=== PATIENT | male | born 1965 | race Caucasian/White ===

== ENCOUNTER 2024-03-10 06:48 | Emergency (ER) | payer OTHER, SELFPAY ==
[2024-03-10 06:52] VITALS: BP 130/101; PULSE 80; TEMP 36.6; O2SAT 96; BMI 27.4
[2024-03-10 06:57] VITALS: PULSE 75; PULSE 77
[2024-03-10 06:58] VITALS: BP 135/101
[2024-03-10 06:59] VITALS: BP 130/101
[2024-03-10 07:00] VITALS: BP 142/102; PULSE 79; O2SAT 96
--- NOTE | 2024-03-10 07:12 | ED.CHESTPAI1 ---
HPI - Chest Pain General Chief Complaint: Chest Pain Stated Complaint: CHEST PAIN Time Seen by Provider: 03/10/24 07:12 Source: patient Mode of arrival: walk-in History of Present Illness HPI narrative: This patient is here planing of palpitations. He actually has had very little chest pain. He describes it as just a light sensation. He is more concerned over the last several weeks has been having fluttering and palpitations. He has a history of high cholesterol but has been off and on statins because of the muscle aches and pains he experiences. Has never had a CT scan coronary scan or stress test. He has no previous cardiovascular disease. There is no family history of cardiac disease. His blood pressure has been trending upwards but he is not on any medications for it. He does use alcohol products occasionally. He has no shortness of breath. No history of syncopal episodes no history of cardiac murmur. No tobacco usage. No diabetes. Related Data Home Medications ?Medication ?Instructions ?Recorded ?Confirmed atorvastatin 20 mg tablet 20 mg PO DAILY 03/10/24 03/10/24 bupropion HCl 150 mg tablet,12 hr 150 mg PO DAILY 03/10/24 03/10/24 sustained-release Allergies Allergy/AdvReac Type Severity Reaction Status Date / Time cefaclor [From Ceclor] Allergy Unknown Verified 03/10/24 07:01 sulfamethoxazole Allergy Unknown Verified 03/10/24 07:01 [From Bactrim] trimethoprim [From Bactrim] Allergy Unknown Verified 03/10/24 07:01 Exam Narrative Exam Narrative: Very pleasant 59-year-old not anxious or apprehensive. Vital signs are noted with mild elevation of blood pressure. HEENT shows no evidence of pallor or scleral icterus or conjunctivitis. Upper airway is completely normal no respiratory distress. His lungs are completely clear no wheeze rales or rhonchi. Heart sounds normal with no S3-S4 clicks rubs gallops or murmurs. Extremities show no evidence of phlebitis edema or swelling. Neurological cognition and mentation are normal. Constitutional Vital Signs, click to edit/add: Last Vital Signs Temp 97.8 F 03/10/24 06:52 Pulse 80 03/10/24 06:52 Resp 18 03/10/24 06:52 BP 130/101 H 03/10/24 06:52 Pulse Ox 96 03/10/24 06:52 O2 Del Method Room Air 03/10/24 06:52 Course Vital Signs Vital signs: Vital Signs Temperature 97.8 F 03/10/24 06:52 Pulse Rate 80 03/10/24 06:52 Respiratory Rate 18 03/10/24 06:52 Blood Pressure 130/101 H 03/10/24 06:52 Pulse Oximetry 96 03/10/24 06:52 Oxygen Delivery Method Room Air 03/10/24 06:52 Temperature 97.8 F 03/10/24 06:52 Pulse Rate 80 03/10/24 06:52 Respiratory Rate 18 03/10/24 06:52 Blood Pressure 130/101 H 03/10/24 06:52 Pulse Oximetry 96 03/10/24 06:52 Oxygen Delivery Method Room Air 03/10/24 06:52 MDM - Chest Pain MDM Narrative Medical decision making narrative: This patient presents with symptoms consistent with an arrhythmia. His risk factors for cardiovascular disease include hypercholesterolemia. He has not had outpatient testing with stress test, echocardiogram or coronary CT scanning in the past. He has been off, and on statins for his cholesterol problem. His workup today is benign but I do want him to follow-up with his primary care doctor to consider evaluation of his arrhythmia. Discharge Plan Discharge Stand Alone Forms: Portal Instructions Chief Complaint: Chest Pain Clinical Impression: Heart palpitations Patient Disposition: Home, Self-Care Time of Disposition Decision: 08:07 Prescriptions / Home Meds: No Action atorvastatin 20 mg tablet 20 mg PO DAILY bupropion HCl 150 mg tablet sustained-release 12 hr 150 mg PO DAILY Print Language: Bangladeshi Additional Instructions: Follow-up with your primary care doctor. He may order further diagnostic testing Referrals: Physician,Non-Staff, MD [Primary Care Provider] - 1 week
--- NOTE | 2024-03-10 07:14 | ECG_ITS ---
[facility] Test Date: 2024-03-10 Pat Name: MIRELA EL Department: Room: - Gender: Male [employer] Machine Operator: : 1965 Requested By: Order Number: [id number] Reading MD: KATIE WILL Measurements Intervals [place] Rate: 75 P: 16 OK: 128 QRS: 52 QRSD: 94 T: 63 QT: 374 QTc: 403 Interpretive Statements 1100 Sinus rhythm 9110 normal ECG No previous ECG available for comparison Electronically Signed On 03-10-2024 23:07:34 EDT by KATIE WILL
--- NOTE | 2024-03-10 07:14 | XR_ITS ---
The [address] [address] Patient Name: MIRELA EL MRN: [id number] date: 1965 Sex: M Assigned Patient Location: ER Current Patient Location: ER Accession/Order Number: [id number] Exam Date: 03/10/2024 07:20 Report Date: 03/10/2024 07:49 At the request of: KAHLIL HATFIELD Procedure: XR chest 1V EXAMINATION: XR chest 1V HISTORY: Arrhythmia , chest pain COMPARISON: No relevant comparison available. FINDINGS: LUNGS: No infiltrate, pneumothorax, or pleural effusion. MEDIASTINUM: No abnormal widening. BOWEL GAS PATTERN: Non-obstructed. FREE AIR: None. CALCIFICATIONS: None significant. BONES: No fracture or visible bone lesion. OTHER: Negative. XR/XR chest 1V IMPRESSION: 1. No acute cardiopulmonary process or suspicious findings. Electronically authenticated by: BIBIANA DIGGS Date: 03/10/2024 07:49
[2024-03-10 07:20] LABS: Basophils Absolute Auto 0.1 10^3/uL (0.0-0.1); Basophils Percent Auto 1.6 % (0.2-2.0); Eosinophils Absolute Auto 0.4 10^3/uL (0.0-0.7); Eosinophils Percent Auto 5.5 % (0.9-7.0); Hematocrit 44.6 % (42.0-54.0); Hemoglobin 15.3 g/dL (14.0-18.0); Immature Granulocytes Abs Auto 0.03 10^3/uL (0.00-0.03); Immature Granulocytes Pct Auto 0.4 % (0.0-0.5); Lymphocytes Absolute Auto 1.8 10^3/uL (1.2-3.8); Mean Corpuscular HGB Conc 34.3 g/dL (29.9-35.2); Mean Corpuscular Hemoglobin 31.2 pg (25.9-34.0); Mean Corpuscular Volume 90.8 fL (80.0-94.0); Mean Platelet Volume 10.1 fL (9.5-13.5); Monocytes Absolute Auto 0.9 10^3/uL (0.3-0.8); Monocytes Percent Auto 12.4 % (1.7-12.0); Neutrophils Absolute Auto 4.3 10^3/uL (1.4-6.5); Neutrophils Percent Auto 57.1 % (43.0-75.0); Platelet Count 260 10^3/uL (150-450); Red Blood Count 4.91 10^6/uL (4.70-6.10); Red Cell Distribution Width 13.1 % (11.0-15.0); White Blood Count 7.6 10^3/uL (4.0-11.0)
[2024-03-10 07:27] LABS: D Dimer 0.45 mg/L FEU (<=0.59)
[2024-03-10 07:30] LABS: Alanine Aminotransferase 36 U/L (16-63); Albumin Level 3.6 g/dL (3.4-5.0); Alkaline Phosphatase 62 U/L (46-116); Anion Gap 12.7; Aspartate Amino Transferase 28 U/L (15-37); BUN Creatinine Ratio 10.3; Bilirubin Total 0.7 mg/dL (0.2-1.0); Carbon Dioxide 27.4 mmol/L (21.0-32.0); Chloride 105 mmol/L (98-107); Estimated GFR (African America >60 (>=60); Estimated GFR (Non-African Ame >60 (>=60); Globulin 3.6 g/dL; Glucose 120 mg/dL (74-106); Potassium 4.1 mmol/L (3.5-5.1); Sodium 141 mmol/L (136-145); Total Protein 7.2 g/dL (6.4-8.2)
[2024-03-10 07:33] LABS: C Reactive Protein <0.50 mg/dL (<=0.50); Troponin I High Sensitivity 4.3 pg/mL (4.0-76.1)
== END 2024-03-10 08:19 | disposition home or self-care (01) ==
PROVIDERS: Emergency Provider Emergency Medicine Emergency Medical Services
DX: R00.2 Palpitations (principal); E78.00 Pure hypercholesterolemia, unspecified
CPT/HCPCS: 36415; 71045; 80053; 84484; 85025; 85378; 86140; 93005; 99285